=== PATIENT | female | born 1940 | race Caucasian/White ===

== ENCOUNTER 2016-07-03 03:15 | Emergency (ER) | payer MEDICARE ==
[~2016-07-03] VITALS: Ht 165.1 cm; Wt 86.4 kg
[~2016-07-03 03:15] MED LIST: AMIT10TA6 PO; ASPI-973 PO; GABA-500 PO; INSU3INS3 SUBQ; LEVO150T5 PO; LOVA40TA PO; METF1000 PO
[2016-07-03] MEDS ORDERED: Succinylcholine Chloride 20 mg/mL 5 mL Inj ONE (03:16)
--- NOTE | 2016-07-03 03:22 | ED.REPORT ---
HPI-Dyspnea / Wheezing Date of Service July 03, 2016 ED Provider: Rui Moraes MD 76 y/o female with a hx of lung cancer (s/p left lobectomy two weeks ago), HTN and DM presents to the ED via EMS for SOB, onset this morning. As per the EMS, the pt has been experiencing dyspnea since her lung surgery but it significantly worsened today. Pt is gasping, breathing in a tripod position and unable to speak due to SOB. Nursing Notes Stated Complaint: SHORT OF BREATH Nursing Notes Reviewed: Yes Allergies: Coded Allergies: No Known Allergies (Unverified , 02/01/15) Scheduled Amitriptyline (Amitriptyline) 10 Mg Tablet 10 MG PO HS Aspirin (Aspirin) 81 Mg Tablet 81 MG PO DAILY Gabapentin (Gabapentin) 100 Mg Capsule 100 MG PO HS Insuln Asp Prt/Insulin Aspart (NovoLOG 70/30 U100 Insulin Flexpen) 100 Unit/Ml Unit 35 UNIT SUBQ BID not to exceed 90u/daily Levothyroxine (Levothyroxine) 150 Mcg Tablet 150 MCG PO DAILY Lovastatin (Lovastatin) 40 Mg Tablet 40 MG PO HS Metformin (Glucophage) 1,000 Mg Tablet 1,000 MG PO BID General Time Seen by MD: 03:21 Chief Complaint Shortness of breath Hx Obtained From: Daughter, EMS Arrived By: Ambulance Sudden in Onset?: No Onset Occurred: More than a week ago... (2 weeks) Symptom Duration: Since onset Severity: Current: No pain currently Severity: Maximum: No pain Recent Healthcare: Recent doctor visit Similar Sx Previous: No Past Medical History Past Medical History Reports: Cancer (Lung), Diabetes mellitus, Hypertension Past Surgical History Left lobectomy Smoking History Never Smoker Ambulatory Status Independent Review of Systems Unable to Obtain ROS Patient condition Respiratory: Reports: Shortness of breath Complete sys rev & neg: except as marked. Physical Exam Initial Vital Signs Vital Signs (First) Date Time Temp Pulse Resp B/P Pulse Ox O2 Delivery O2 Flow Rate FiO2 07/03/16 03:28 35.1 114 38 142/128 96 Simple Mask 4 Initial VS: Reviewed, Vital signs abnormal Head / Eyes: Atraumatic, Normocephalic, PERRL Abdomen / GI: Soft, Non-tender, No guarding, No rebound, No distention Extremities: Vascular intact, Neuro intact, No swelling, No tenderness Skin: Warm, Dry, No cyanosis General/Constitutional: Awake Distress / Hydration: Positive: Distress severe Neck: Atraumatic, Supple, Full range of motion Respiratory / Chest: Breath sounds = bilat, No rales, No wheezing Pt actively hyperventilating. Using accessory muscle for respiration. Tripoding Cardiovascular: Heart rate NL, Regular rhythm, Heart sounds NL, No murmurs, No rubs Interpretation & Diagnostics Lab Results Interpretation Result Diagram: 07/03/16 0339 07/03/16 0339 Test 07/03/16 03:39 White Blood Count 20.9th/mm3 (3.8-10.1) Red Blood Count 5.10mil/mm3 (3.90-5.20) Hemoglobin 15.4g/dL (12.0-15.6) Hematocrit 47.2% (35.0-46.0) Mean Corpuscular Volume 92.5fL (81-100) Mean Corpuscular Hemoglobin 30.2pg (27.0-35.0) Mean Corpuscular Hemoglobin Concent 32.6% (32.0-37.0) Red Cell Distribution Width 14.1% (12.3-15.4) Platelet Count 237bil/L (150-400) Neutrophils (%) (Auto) 33.4% (40-74) Lymphocytes (%) (Auto) 57.5% (14-46) Monocytes (%) (Auto) 7.3% (4-12) Eosinophils (%) (Auto) 0.6% (0-5) Basophils (%) (Auto) 0.7% (0-3) D-Dimer 8.49mg/L FEU (<0.50) Sodium Level 140mEq/L (134-144) Potassium Level 3.6mEq/L (3.5-5.2) Chloride Level 95mEq/L (97-108) Carbon Dioxide Level 15mmol/L (18-29) Blood Urea Nitrogen 16mg/dL (8-27) Creatinine 1.50mg/dL (0.57-1.00) Estimat Glomerular Filtration Rate 48mL/min (>59) Glucose Level 338mg/dL (60-99) Lactic Acid Level 11.0mmol/L (0.4-2.0) Calcium Level 9.4mg/dL (8.5-10.1) Magnesium Level 2.1mg/dL (1.6-2.6) Total Bilirubin 0.4mg/dL (0.0-1.2) Aspartate Amino Transf (AST/SGOT) 36U/L (0-50) Alanine Aminotransferase (ALT/SGPT) 29U/L (0-32) Alkaline Phosphatase 77U/L (25-165) Troponin T 0.032ug/L (0.0-0.011) Pro-B-Type Natriuretic Peptide 2272pg/mL (0-738) Total Protein 7.3g/dL (6.4-8.4) Albumin 3.9g/dL (3.4-5.0) Lab Results Interpretation: Elevated white blood count, elevated blood glucose, markedly elevated lactic acid, ABG with severe metabolic acidosis. ECG Interpretation ECG Interpretation: Sinus tachycardia. Rate 111. Right bundle branch block. Time: 03:27 Interpreted by: ED physician Re-Eval/Medical Decision Med Decision/Clinical Course 76-year-old female who has lung cancer and recently had left lower lobe lobectomy. She presents now with increasing respiratory distress and tachypnea. She is DO NOT RESUSCITATE, but the question of intubation is not hardy Workup was initiated to include ABG but she quickly went downhill. Her ABG had pH is 7.2 and she became increasingly unresponsive. After brief discussion with the daughter arrangements were made to intubate her. She continued to become less responsive and more bradycardic. She became pulseless and apneic prior to completion of intubation. CPR was not attempted at family request. Subsequent evaluation of her laboratory showed that she had an elevated white blood count of 20,900 and a markedly elevated lactic acid. She likely became severely acidotic from infection. Please see nurse's notes for details of disposition. Source of Hx: Old records Re-Evaluation/Progress #1: Time of Eval: 03:52 Re-Evaluation/Progress Note: Discussed the plan to intubate with pt's daughter Pt's daughter understands and agrees with the plan. Re-Evaluation/Progress #2: Time of Eval: 03:59 Re-Evaluation/Progress Note: Pt's daughter informed that the pt's heart has ceased to function. Pt's status is DNR. Counseled Regarding: Diagnosis, Other () Discharge & Departure Impression: Primary Impression: Sepsis Sepsis type: sepsis due to unspecified organism Qualified Code: A41.9 - Sepsis, unspecified organism Additional Impressions: Metabolic acidosis Cardiopulmonary arrest Disposition: Discharge Condition Condition: Referrals: Corbin Joiner MD (PCP) Scribe Attestation Portions of this note were transcribed by Bud Schneider. I, , personally performed the history, physical exam and medical decision-making;I reviewed and confirmed the accuracy of the information in the transcribed note. Signed by Luis Manuel Robles. 07/03/16 0628 copies to: Corbin Joiner MD, Howard L MD July 03, 2016 03:22 Bud Schneider July 03, 2016 03:29
[2016-07-03 03:28] VITALS: BP 142/128; PULSE 114; RESP 38; O2SAT 96
--- NOTE | 2016-07-03 03:41 | ABG ---
DateTimeAnalyzed 03:36:00 -_ pH ____7.207 - 7.350 7.450 pCO2 ___23.2__ -mmHg 35.0 45.0 pO2 112 -mmHg 69.0 116 HCO3- ____8.9__ -mmol/L 22.0 26.0 ABE __-17.8__ -mmol/L -2.0 2.0 tHb ___15.5__ -g/dL O2Hb ___95.9__ -% COHb ____0.3__ -% MetHb ____0.8__ -% sO2 ___97.0__ -% FIO2 __100.0__ -% Drawn By LT - Date/Time Notified____ 03:40:00 -_ Notified By LT - Notified Whom DR LEIBRAND - B 765 -mmHg tO2 ___21.1__ -Vol% Jacques test _Positive -
[2016-07-03 03:46] LABS: BASOPHILS % (AUTO) 0.7 % (0-3); EOSINOPHILS % (AUTO) 0.6 % (0-5); MONOCYTES % (AUTO) 7.3 % (4-12); Mean Corpuscular Hemoglobin 30.2 pg (27.0-35.0); Mean Corpuscular Volume 92.5 fL (81-100); NEUTROPHILS % (AUTO) 33.4 % (40-74); Platelet Count 237 bil/L (150-400)
[2016-07-03] MEDS ORDERED: Succinylcholine Chloride 20 mg/mL 5 mL Inj IVPUSH ONE (04:15)
[2016-07-03 04:21] LABS: Magnesium 2.1 mg/dL (1.6-2.6)
[2016-07-03 04:42] LABS: TROPONIN T 0.032 ug/L (0.0-0.011)
--- NOTE | 2016-07-03 09:13 | DRSVH ---
PROCEDURE: X-RAY CHEST ONE VIEW, PORTABLE ([id number]) INDICATIONS: dyspnea TECHNIQUE: One view of the chest was acquired. COMPARISON: [facility], CR, CHEST 2VW, 05/31/2012, 10:54. [facility], CR, CH EST 1VW (PORTABLE), 04/28/2011, 9:29. FINDINGS: Surgical changes and devices: None. Lungs and pleura: No pleural effusions or pneumothorax. Airspace opacity involves the left lung bas e and there is mild tenting left hemidiaphragm. Mediastinum: Mediastinal contours appear normal. Heart size is normal. Bones and chest wall: No suspicious bony lesions. Overlying soft tissues appear unremarkable. IMPRESSION: Left basilar atelectasis versus aspiration or pneumonia. Correlate clinically. Dictated by: Brandon Singletary RREsteban Interpreted: Margarette Siddiqi MD on 07/03/2016 at 9:12 Transcribed by: DORETHA on 07/03/2016 at 9:13 Approved by: Margarette Siddiqi M.D. on 07/03/2016 at 17:02
== END 2016-07-03 03:55 | disposition expired ==
LOC: SED 03:15 → EDBD 03:15 → SED 03:55
DX: A41.9 Sepsis, unspecified organism (principal); E87.2 Acidosis; I46.9 Cardiac arrest, cause unspecified; C34.90 Malignant neoplasm of unspecified part of unspecified bronchus or lung; E11.9 Type 2 diabetes mellitus without complications; I10 Essential (primary) hypertension; Z90.2 Acquired absence of lung [part of]; Z66 Do not resuscitate; Z79.82 Long term (current) use of aspirin; Z79.4 Long term (current) use of insulin; Z79.84 Long term (current) use of oral hypoglycemic drugs
CPT/HCPCS: 36415; 36620; 71010; 80053; 82375; 82803; 82948; 83605; 83735; 83880; 84484; 85025; 85378; 93005; 94799; 96374; 99285; J0330